=== PATIENT | female | born 1985 | race Caucasian/White ===

== ENCOUNTER → 2016-08-25 | Outpatient (CLI) | payer BC ==
--- NOTE | 2016-08-25 11:46 | RAD ---
EXAM: Left breast ultrasound. HISTORY: Palpable/tender focus in the left breast. 31 weeks . COMPARISON: None. FINDINGS: Sonographic evaluation of the left breast was performed at the site of concern at the 4:00 position 6 cm from the nipple. This reveals a region of relatively hyperemic and hypoechoic parenchyma without a discrete mass, fluid collection or ductal dilatation. Images of the left axilla were obtained which demonstrate no enlarged lymph nodes. IMPRESSION: 1. BI-RADS Category 1: Negative. 2. The region of tenderness/palpable concern appears to represent dense parenchyma. Recommend follow-up after delivery/ to confirm resolution with sonographic reassessment as necessary.
== END | disposition home or self-care (01) ==
LOC: KCIC US 10:54
PROVIDERS: ATTEND Obstetrics & Gynecology
DX: N63 Unspecified lump in breast (principal); N64.89 Other specified disorders of breast
CPT/HCPCS: 76641